=== PATIENT | female | born 1995 | race American Indian/Alaskan Native ===

== ENCOUNTER 2018-01-25 22:43 | Emergency (ER) | payer BC ==
[2018-01-26 04:01] LABS: Amorphous Crystals,Urine Few; Bilirubin,Urine NEG (Negative); Blood,Urine NEG (Negative); Color,Urine Yellow (Yellow); Hyaline Casts,Urine 3 /LPF; Mucus,Urine FEW /HPF; Protein,Urine <15 mg/dL mg/dL (Negative); Urobilinogen,Urine < 2.0 mg/dL (<2.0)
[2018-01-26] MEDS ORDERED: TYLENOL PO ONE (04:16)
--- NOTE | 2018-01-26 04:17 | Emergency Department Report ---
ED General Adult HPI - General Chief complaint: Upper Respiratory Infection Stated complaint: ABD PAIN; N/V; 17WKS GEST Time Seen by Provider: 01/26/18 04:13 Source: patient Mode of arrival: Ambulatory Limitations: No Limitations - History of Present Illness Initial comments: 22-year-old -[place] female comes in for evaluation of runny nose cough congestion for 3 days. She also reports she's been having lower abdominal pain denies any vaginal bleeding or discharge. Patient reports that she is 17 weeks gestation 1 para 0. Patient reports that she had last seen OB last month but is trying to find another OB provider. Patient is taking no medications for pain she denies any fever or chills reports lower abdominal pain as crampy. She also reports that she has vomited 3 times today. SHe complains of her seasonal allergies flare and sneezing, and runny nose,cough and nasal congestion. -: days(s) (3) Location: abdomen Quality: aching Consistency: constant Improves with: none Worsens with: none Associated Symptoms: nausea/vomiting Treatments Prior to Arrival: none - Related Data Previous Rx's Medication Instructions Recorded Last Taken Type Docosahexanoic Acid [ Dha] 200 mg PO QDAY #90 capsule 01/26/18 Unknown Rx Loratadine [Claritin] 10 mg PO DAILY #30 tablet 01/26/18 Unknown Rx Allergies Allergy/AdvReac Type Severity Reaction Status Date / Time No Known Allergies Allergy Verified 01/26/18 02:05 ED Review of Systems ROS: Stated complaint: ABD PAIN; N/V; 17WKS GEST Other details as noted in HPI Constitutional: denies: chills, fever ENT: other Respiratory: cough (runny nose, sneezing) Cardiovascular: denies: chest pain, palpitations Endocrine: no symptoms reported Gastrointestinal: vomiting Genitourinary: denies: urgency, dysuria, discharge Musculoskeletal: denies: back pain, joint swelling, arthralgia Skin: denies: rash, lesions Neurological: denies: headache, weakness, paresthesias Psychiatric: denies: anxiety, depression Hematological/Lymphatic: denies: easy bleeding, easy bruising ED Past Medical Hx - Past Medical History Previous Medical History?: No - Surgical History Past Surgical History?: No - Social History Smoking Status: Never Smoker Substance Use Type: None - Medications Home Medications: Home Medications Medication Instructions Recorded Confirmed Last Taken Type Docosahexanoic Acid [ Dha] 200 mg PO QDAY #90 capsule 01/26/18 Unknown Rx Loratadine [Claritin] 10 mg PO DAILY #30 tablet 01/26/18 Unknown Rx ED Physical Exam - General Limitations: No Limitations General appearance: alert, in no apparent distress - Head Head exam: Present: atraumatic, normocephalic - Eye Eye exam: Present: normal appearance - ENT ENT exam: Present: mucous membranes moist - Neck Neck exam: Present: normal inspection - Respiratory Respiratory exam: Present: normal lung sounds bilaterally. Absent: respiratory distress - Cardiovascular Cardiovascular Exam: Present: regular rate, normal rhythm. Absent: systolic murmur, diastolic murmur, rubs, gallop - GI/Abdominal GI/Abdominal exam: Present: soft, normal bowel sounds - Extremities Exam Extremities exam: Present: normal inspection - Back Exam Back exam: Present: normal inspection - Neurological Exam Neurological exam: Present: alert, oriented X3 - Psychiatric Psychiatric exam: Present: normal affect, normal mood - Skin Skin exam: Present: warm, dry, intact, normal color. Absent: rash ED Course Vital Signs 01/26/18 01/26/18 00:40 04:43 Temperature 98.0 F Pulse Rate 73 72 Respiratory 17 18 Rate Blood Pressure 102/59 Blood Pressure 105/61 [Right] O2 Sat by Pulse 100 100 Oximetry ED Medical Decision Making - Radiology Data Radiology results: report reviewed, image reviewed Ultrasound impression single viable IUP, 17 weeks 4 days. heart rate 1 49 bpm - Medical Decision Making Patient's been evaluated with this provider fast track. Urinalysis ultrasound type and cross Tylenol referral to [facility]. She did take [id number] Claritin 10mg daily. Critical care attestation.: If time is entered above; I have spent that time in minutes in the direct care of this critically ill patient, excluding procedure time. ED Disposition Clinical Impression: 17 weeks gestation of Abdominal pain Qualifiers: Abdominal location: lower abdomen, unspecified Qualified Code(s): R10.30 - Lower abdominal pain, unspecified Allergic rhinitis Qualifiers: Allergic rhinitis trigger: unspecified Allergic rhinitis seasonality: unspecified seasonality Qualified Code(s): J30.9 - Allergic rhinitis, unspecified Disposition: DC- TO HOME OR SELFCARE Is pt being admited?: No Does the pt Need Aspirin: No Condition: Stable Instructions: (ED), Allergic Rhinitis (ED) Additional Instructions: Takes her vitamins as prescribed and take her Claritin for your seasonal allergies. Follow up with an OB for continued care. Prescriptions: Docosahexanoic Acid [ Dha] 200 mg PO QDAY #90 capsule Loratadine [Claritin] 10 mg PO DAILY #30 tablet Referrals: DONALD VERDUZCO [Other] - 3-5 Days [facility] [Provider Group] - 3-5 Days [facility] [Provider Group] - 3-5 Days CHINMAY MCDANIEL MD [Staff Physician] - 3-5 Days Forms: Work/School Release Form(ED)
--- NOTE | 2018-01-26 04:28 | Ultrasound Report ---
FINAL REPORT EXAM: US OB > = 14 WEEKS FETUS HISTORY: abdominal cramping TECHNIQUE: Transabdominal imaging was obtained of the pelvis along with Doppler interrogation of the fetus. FINDINGS: There is a single viable IUP with an estimated gestational age of 17 weeks 4 days. The heart rate is 149 BPM. The cervix is closed. The cervix length is 3 cm. The position is breech. The amniotic fluid volume appears normal. The placenta is posterior in position and is grade 0. The stomach, kidneys, bladder, diaphragm, heart, and three-vessel cord all appear normal. The spine, four-chamber reveal heart, and cord insertion are not adequately seen for evaluation. Estimated weight is 198 grams. IMPRESSION: Single viable IUP, 17 weeks 4 days. heart rate is 149 BPM.
[2018-01-26 04:44] VITALS: BP 105/61
== END 2018-01-26 04:48 | disposition home or self-care (01) ==
LOC: ED 22:43
DX: O99.512 Diseases of the respiratory system complicating pregnancy, second trimester (principal); J30.9 Allergic rhinitis, unspecified; R10.30 Lower abdominal pain, unspecified; R11.2 Nausea with vomiting, unspecified; Z3A.17 17 weeks gestation of pregnancy
CPT/HCPCS: 36415; 76805; 81001; 84702; 86850; 86900; 86901; 87086

== ENCOUNTER 2018-12-14 16:41 | Emergency (ER) | payer BC, OTHER ==
[2018-12-14 16:54] VITALS: BP 127/79
--- NOTE | 2018-12-14 16:55 | Emergency Department Report ---
Blank Doc - Documentation Documentation: 23 y o female presents with dysuria x 2 days denies vag bleed,d/c/pelv pain UA/UPT [facility] evaluate
[2018-12-14 18:30] LABS: Bacteria,Urine 2+ /HPF (Negative); Bilirubin,Urine NEG (Negative); Blood,Urine NEG (Negative); Color,Urine Amber (Yellow); Mucus,Urine FEW /HPF
--- NOTE | 2018-12-14 18:31 | Emergency Department Report ---
ED Female HPI - General Chief complaint: Urogenital-Female Stated complaint: UTI Time Seen by Provider: 12/14/18 16:52 Source: patient Mode of arrival: Ambulatory Limitations: No Limitations - History of Present Illness Initial comments: Patient 23-year-old female who presents with dysuria frequency urgency 2 days patient denies discharge no vaginal bleeding no back pain assessment pain no nausea vomiting patient states that this is UTI symptoms exacerbated of bloating symptoms are relieved by nothing there is no fever chills MD Complaint: vaginal discharge, dysuria Onset/Timin -: days(s) Location: suprapubic Radiation: non-radiating Severity: moderate Severity scale (0 -10): 4 Quality: cramping Consistency: intermittent Improves with: none Worsens with: none Are you Now?: No Last Menstrual Period: 11/30/18 EDC: 09/06/19 Associated Symptoms: vaginal discharge, dysuria - Related Data Sexually active: Yes : 0 Para: 0 A: 0 Previous Rx's Medication Instructions Recorded Last Taken Type Docosahexanoic Acid [ Dha] 200 mg PO QDAY #90 capsule 01/26/18 Unknown Rx Loratadine [Claritin] 10 mg PO DAILY #30 tablet 01/26/18 Unknown Rx Ibuprofen 800 mg PO TID PRN #30 tablet 12/14/18 Unknown Rx Nitrofurantoin [place]/M-Cryst 100 mg PO BID 7 Days #14 capsule 12/14/18 Unknown Rx [Macrobid CAP] Allergies Allergy/AdvReac Type Severity Reaction Status Date / Time No Known Allergies Allergy Verified 12/14/18 16:51 ED Review of Systems ROS: Stated complaint: UTI Other details as noted in HPI Constitutional: denies: chills, fever Eyes: denies: eye pain, eye discharge, vision change ENT: denies: ear pain, throat pain Respiratory: no symptoms reported Cardiovascular: denies: chest pain, palpitations Endocrine: no symptoms reported Gastrointestinal: denies: abdominal pain, nausea, diarrhea Genitourinary: denies: urgency, dysuria, discharge Musculoskeletal: joint swelling (is warm). denies: back pain, arthralgia Skin: denies: rash, lesions Neurological: denies: headache, weakness, paresthesias Psychiatric: denies: anxiety, depression Hematological/Lymphatic: denies: easy bleeding, easy bruising ED Past Medical Hx - Past Medical History Previous Medical History?: No - Surgical History Past Surgical History?: No - Social History Smoking Status: Current Every Day Smoker Substance Use Type: Alcohol, Marijuana - Medications Home Medications: Home Medications Medication Instructions Recorded Confirmed Last Taken Type Docosahexanoic Acid [ Dha] 200 mg PO QDAY #90 capsule 01/26/18 Unknown Rx Loratadine [Claritin] 10 mg PO DAILY #30 tablet 01/26/18 Unknown Rx Ibuprofen 800 mg PO TID PRN #30 tablet 12/14/18 Unknown Rx Nitrofurantoin [place]/M-Cryst 100 mg PO BID 7 Days #14 capsule 12/14/18 Unknown Rx [Macrobid CAP] ED Physical Exam - General Limitations: No Limitations General appearance: alert, in no apparent distress - Head Head exam: Present: atraumatic, normocephalic - Eye Eye exam: Present: normal appearance, PERRL, EOMI Pupils: Present: normal accommodation - ENT ENT exam: Present: normal exam, normal orophraynx (tolerated), mucous membranes moist, TM's normal bilaterally, normal external ear exam - Neck Neck exam: Present: normal inspection, full ROM. Absent: tenderness, lymphadenopathy, thyromegaly - Respiratory Respiratory exam: Absent: wheezes, stridor, chest wall tenderness - Cardiovascular Cardiovascular Exam: Present: regular rate, normal rhythm, normal heart sounds. Absent: systolic murmur, diastolic murmur, rubs, gallop - GI/Abdominal GI/Abdominal exam: Present: soft, normal bowel sounds. Absent: distended, tenderness, guarding, rebound, rigid, mass, bruit, hernia - Rectal Rectal exam: Present: deferred - Extremities Exam Extremities exam: Present: normal inspection, full ROM, normal capillary refill. Absent: tenderness, pedal edema, joint swelling, calf tenderness - Back Exam Back exam: Present: normal inspection, full ROM. Absent: tenderness, CVA tenderness (R), CVA tenderness (L), muscle spasm, paraspinal tenderness, vertebral tenderness, rash noted - Neurological Exam Neurological exam: Present: alert, oriented X3, CN II-XII intact, normal gait, reflexes normal - Psychiatric Psychiatric exam: Present: normal affect, normal mood - Skin Skin exam: Present: warm, dry, intact, normal color. Absent: rash ED Course Vital Signs 12/14/18 16:52 Temperature 97.7 F Pulse Rate 79 Respiratory 16 Rate Blood Pressure 127/79 O2 Sat by Pulse 100 Oximetry ED Medical Decision Making - Lab Data Labs 12/14/18 17:14 Urine Color Cristal Urine Turbidity Clear Urine pH 5.0 Ur Specific [place] 1.016 Urine Protein 30 mg/dl Urine Glucose (UA) Neg Urine Ketones Neg Urine Blood Neg Urine Nitrite Pos Urine Bilirubin Neg Urine Urobilinogen 4.0 Ur Leukocyte Esterase Neg Urine WBC (Auto) 49.0 H Urine RBC (Auto) 6.0 U Epithel Cells (Auto) 8.0 Urine Bacteria (Auto) 2+ Urine Mucus Few Urine HCG, Qual Negative - Medical Decision Making this is a UTI plan: macrobid iburprofen follow up with pcp in 2-3 days return to ed if symptoms worsen, pt verbalized agreement and understanding of discharge plan. Critical care attestation.: If time is entered above; I have spent that time in minutes in the direct care of this critically ill patient, excluding procedure time. ED Disposition Clinical Impression: UTI (urinary tract infection) Qualifiers: Urinary tract infection type: acute cystitis Hematuria presence: without hematuria Qualified Code(s): N30.00 - Acute cystitis without hematuria Disposition: DC-01 TO HOME OR SELFCARE Is pt being admited?: No Does the pt Need Aspirin: No Condition: Stable Instructions: Urinary Tract Infection in Women (ED) Prescriptions: Ibuprofen 800 mg PO TID PRN #30 tablet PRN Reason: pain Nitrofurantoin [place]/M-Cryst [Macrobid CAP] 100 mg PO BID 7 Days #14 capsule Referrals: BOB EDWARD MD [Primary Care Provider] - 3-5 Days Forms: Work/School Release Form(ED) Time of Disposition: 19:32
[2018-12-14 18:59] LABS: HCG Qualitative,Urine Negative (Negative)
== END 2018-12-14 19:40 | disposition home or self-care (01) ==
LOC: ED 16:41
DX: N39.0 Urinary tract infection, site not specified (principal); F17.200 Nicotine dependence, unspecified, uncomplicated
CPT/HCPCS: 81001; 81025; 99283

== ENCOUNTER 2019-05-02 14:55 | Emergency (ER) | payer BC, OTHER ==
--- NOTE | 2019-05-02 15:11 | Emergency Department Report ---
Blank Doc - Documentation Documentation: This is a 23-year-old female that presents with vaginal discharge and itching. This initial assessment/diagnostic orders/clinical plan/treatment(s) is/are subject to change based on patient's health status, clinical progression and re- assessment by fellow clinical providers in the ED. Further treatment and workup at subsequent clinical providers discretion. Patient/guardians urged not to elope from the ED as their condition may be serious if not clinically assessed and managed. Initial orders include: 1- Patient sent to [facility] for further evaluation and treatment 2- UA 3- wet prep/GC
[2019-05-02 15:13] VITALS: BP 112/72
--- NOTE | 2019-05-02 15:38 | Emergency Department Report ---
ED Female HPI - General Chief complaint: Urogenital-Female Stated complaint: YEAST INFECTION Time Seen by Provider: 05/02/19 15:10 Source: patient Mode of arrival: Ambulatory Limitations: No Limitations - History of Present Illness Initial comments: CC: "I have a really bad yeast infection." Angela presents with recurrent yeast infection which occurs every few months. She desires oral fluconazole. She states that the [id number] cream normally works. However she has not desire to perform application of topical treatment. She denies fever. She denies abdominal pain. She has white discharge. Vaginal itching is her main concern. MD Complaint: vaginal discharge, other (vaginal itching) -: Gradual, days(s) (2) Location: labia Severity: mild Quality: other (itching and irritation) Consistency: constant Improves with: medication Worsens with: bathing Are you Now?: No Associated Symptoms: vaginal discharge - Related Data Previous Rx's Medication Instructions Recorded Last Taken Type Docosahexanoic Acid [ Dha] 200 mg PO QDAY #90 capsule 01/26/18 Unknown Rx Loratadine [Claritin] 10 mg PO DAILY #30 tablet 01/26/18 Unknown Rx Ibuprofen [Ibuprofen 800] 800 mg PO TID PRN #30 tablet 12/14/18 Unknown Rx Nitrofurantoin [place]/M-Cryst 100 mg PO BID 7 Days #14 capsule 12/14/18 Unknown Rx [Macrobid CAP] Fluconazole [Diflucan TAB] 150 mg PO ONCE #1 tablet 05/02/19 Unknown Rx Miconazole/Cleanser 17 On Wipe 1 each VG ONCE #1 kit 05/02/19 Unknown Rx [Monistat 7 Combination Pack] Allergies Allergy/AdvReac Type Severity Reaction Status Date / Time No Known Allergies Allergy Verified 12/14/18 16:51 ED Review of Systems ROS: Stated complaint: YEAST INFECTION Other details as noted in HPI Constitutional: denies: fever, malaise Gastrointestinal: denies: abdominal pain, nausea, vomiting Genitourinary: discharge. denies: urgency, dysuria, hematuria, abnormal menses Skin: denies: rash, lesions ED Past Medical Hx - Past Medical History Previous Medical History?: No - Surgical History Past Surgical History?: No - Social History Smoking Status: Never Smoker Substance Use Type: Marijuana - Medications Home Medications: Home Medications Medication Instructions Recorded Confirmed Last Taken Type Docosahexanoic Acid [ Dha] 200 mg PO QDAY #90 capsule 01/26/18 Unknown Rx Loratadine [Claritin] 10 mg PO DAILY #30 tablet 01/26/18 Unknown Rx Ibuprofen [Ibuprofen 800] 800 mg PO TID PRN #30 tablet 12/14/18 Unknown Rx Nitrofurantoin [place]/M-Cryst 100 mg PO BID 7 Days #14 capsule 12/14/18 Unknown Rx [Macrobid CAP] Fluconazole [Diflucan TAB] 150 mg PO ONCE #1 tablet 05/02/19 Unknown Rx Miconazole/Cleanser 17 On Wipe 1 each VG ONCE #1 kit 05/02/19 Unknown Rx [Monistat 7 Combination Pack] ED Physical Exam - General Limitations: No Limitations General appearance: alert, in no apparent distress - Head Head exam: Present: atraumatic, normocephalic - Eye Eye exam: Present: normal appearance - ENT ENT exam: Present: mucous membranes moist - Neck Neck exam: Present: normal inspection - Cardiovascular Cardiovascular Exam: Absent: systolic murmur, diastolic murmur, rubs, gallop - GI/Abdominal GI/Abdominal exam: Present: soft, normal bowel sounds - Extremities Exam Extremities exam: Present: normal inspection - Neurological Exam Neurological exam: Present: alert, oriented X3 - Psychiatric Psychiatric exam: Present: normal affect, normal mood - Skin Skin exam: Present: warm, dry, intact, normal color. Absent: rash ED Course Vital Signs 05/02/19 15:10 Temperature 98.5 F Pulse Rate 82 Respiratory 16 Rate Blood Pressure 112/72 O2 Sat by Pulse 99 Oximetry ED Medical Decision Making - Medical Decision Making Vaginitis: Will treat for candidal vaginitis with oral fluconazole and Monistat. Referred to outside clinic for further evaluation. Critical care attestation.: If time is entered above; I have spent that time in minutes in the direct care of this critically ill patient, excluding procedure time. ED Disposition Clinical Impression: Vaginitis due to Fela Disposition: - TO HOME OR SELFCARE Is pt being admited?: No Does the pt Need Aspirin: No Condition: Stable Instructions: Vulvovaginal Candidiasis (ED) Prescriptions: Fluconazole [Diflucan TAB] 150 mg PO ONCE #1 tablet Miconazole/Cleanser 17 On Wipe [Monistat 7 Combination Pack] 1 each VG ONCE #1 kit Referrals: [facility] [Outside] - 3-5 Days Forms: Work/School Release Form(ED)
== END 2019-05-02 16:00 | disposition home or self-care (01) ==
LOC: ED 14:55
DX: B37.3 Candidiasis of vulva and vagina (principal); F12.10 Cannabis abuse, uncomplicated; Z79.899 Other long term (current) drug therapy
CPT/HCPCS: 99282

== ENCOUNTER 2019-05-03 07:41 | Emergency (ER) | payer BC, OTHER ==
[2019-05-03 07:48] VITALS: BP 170/71
--- NOTE | 2019-05-03 08:30 | Emergency Department Report ---
ED Rash HPI - HPI Chief Complaint: Skin Rash Stated Complaint: WELTS/ITCHY ON ARMS/FACE/CHEST/HANDS Time Seen by Provider: 05/03/19 08:07 Duration: 2 Days Location: Other (diffuse) Suspected Cause: Other (patient states that she is sleeping on a used mattress at this time) Rash Symptoms: Yes Itching, No Facial Swelling, No Tongue/Oral Swelling, No Breathing Difficulties, No Choking Sensation, No Wheezing/Dyspnea, No Peeling, No Blistering, No Fever ED Review of Systems ROS: Stated complaint: WELTS/ITCHY ON ARMS/FACE/CHEST/HANDS Other details as noted in HPI Comment: All other systems reviewed and negative ED Past Medical Hx - Past Medical History Previous Medical History?: No - Surgical History Past Surgical History?: No - Social History Smoking Status: Never Smoker Substance Use Type: Marijuana - Medications Home Medications: Home Medications Medication Instructions Recorded Confirmed Last Taken Type Docosahexanoic Acid [ Dha] 200 mg PO QDAY #90 capsule 01/26/18 Unknown Rx Loratadine [Claritin] 10 mg PO DAILY #30 tablet 01/26/18 Unknown Rx Ibuprofen [Ibuprofen 800] 800 mg PO TID PRN #30 tablet 12/14/18 Unknown Rx Nitrofurantoin [place]/M-Cryst 100 mg PO BID 7 Days #14 capsule 12/14/18 Unknown Rx [Macrobid CAP] Fluconazole [Diflucan TAB] 150 mg PO ONCE #1 tablet 05/02/19 Unknown Rx Miconazole/Cleanser 17 On Wipe 1 each VG ONCE #1 kit 05/02/19 Unknown Rx [Monistat 7 Combination Pack] Permethrin 5% [Acticin 5% CREAM] 1 applicatio TP ONCE #1 tube 05/03/19 Unknown Rx diphenhydrAMINE [Benadryl CAP] 25 mg PO Q6HR PRN #10 capsule 05/03/19 Unknown Rx predniSONE [Deltasone] 20 mg PO QDAY #5 tab 05/03/19 Unknown Rx Rash Exam - Exam General: Vital signs noted. No distress. Alert and acting appropriately. HEENT: No Periorbital Edema, No Conjuctival Injection, No Chemosis, No Perioral Edema, No Tongue Edema, No Uvular Edema, No Compromised Airway, No Drooling Lungs: Yes Good Air Exchange (Normal Breath Sounds), No Wheezes, No Ronchi, No Stridor, No Cough, No Labored Respirations, No Retractions, No Use of Accessory Muscles, No Other Abnormal Lung Sounds Heart: Yes Regular, No Murmur Skin: Yes Urticarial Rash (patient with multiple papules diffusely in her body especially on her face hands and upper extremity. Some of these have urticarial-type base and are grouped togeather), Yes Maculopapular Rash Other: Positive: Abdomen Normal, Neurologic Normal, Musculoskeletal Normal ED Course Vital Signs 05/03/19 07:45 Temperature 98.1 F Pulse Rate 73 Respiratory 18 Rate Blood Pressure 170/71 O2 Sat by Pulse 98 Oximetry ED Medical Decision Making - Medical Decision Making The patient states that she has not seen any actual bedbugs on the mattress therefore patient likely has scabies. Patient treated appropriately and discharged home. Critical care attestation.: If time is entered above; I have spent that time in minutes in the direct care of this critically ill patient, excluding procedure time. ED Disposition Clinical Impression: Scabies Disposition: DC-01 TO HOME OR SELFCARE Is pt being admited?: No Does the pt Need Aspirin: No Condition: Stable Instructions: Scabies (ED) Referrals: [facility] [Other] - 3-5 Days Time of Disposition: 08:30
== END 2019-05-03 08:43 | disposition home or self-care (01) ==
LOC: ED 07:41
DX: B86 Scabies (principal); F12.10 Cannabis abuse, uncomplicated; Z79.899 Other long term (current) drug therapy
CPT/HCPCS: 99282

== ENCOUNTER 2019-06-10 19:44 | Emergency (ER) | payer BC, OTHER ==
--- NOTE | 2019-06-10 20:50 | Emergency Department Report ---
Blank Doc - Documentation Documentation: 23-year-old female that presents with vaginal discharge. This initial assessment/diagnostic orders/clinical plan/treatment(s) is/are subject to change based on patient's health status, clinical progression and re- assessment by fellow clinical providers in the ED. Further treatment and workup at subsequent clinical providers discretion. Patient/guardians urged not to elope from the ED as their condition may be serious if not clinically assessed and managed. Initial orders include: 1- Patient sent to [facility] for further evaluation and treatment 2- UA 3- pelvic exam to be done
[2019-06-10 20:53] VITALS: BP 99/61
[2019-06-10 22:16] LABS: HCG Qualitative,Urine Negative (Negative)
[2019-06-10 22:21] LABS: Bilirubin,Urine NEG (Negative); Blood,Urine NEG (Negative); Color,Urine Yellow (Yellow); Hyaline Casts,Urine 2 /LPF; Mucus,Urine FEW /HPF; Protein,Urine <15 mg/dL mg/dL (Negative)
--- NOTE | 2019-06-11 02:32 | Emergency Department Report ---
ED Female HPI - General Chief complaint: Urogenital-Female Stated complaint: VAGINAL DISCHARGE/FACIAL RASH Time Seen by Provider: 06/10/19 20:49 Source: patient Mode of arrival: Ambulatory Limitations: No Limitations - History of Present Illness Initial comments: Patient is a 23-year-old female presents to emergency room with complaints of vaginal discharge that began one week ago. She states it is thick and white. she has associated vaginal itching and irritation. she denies any abdominal pain, fever, nausea, vomiting, diarrhea, dysuria. States she is sexually active. States she uses protection and denies any new partners. She states she last saw her PLASTIC JOINT MAKER approximately 8 months ago. She denies any past medical history or allergies to medications. Patient also presents to the emergency room with complaints of a rash to the face that began this morning. She denies any facial swelling, difficulty breathing, sensation of throat closing. She denies any new detergents, soaps, foods, anything new. She states she has a past medical history of eczema and has used hydrocortisone cream in the past but does not have anymore. - Related Data Previous Rx's Medication Instructions Recorded Last Taken Type Docosahexanoic Acid [ Dha] 200 mg PO QDAY #90 capsule 01/26/18 Unknown Rx Loratadine [Claritin] 10 mg PO DAILY #30 tablet 01/26/18 Unknown Rx Ibuprofen [Ibuprofen 800] 800 mg PO TID PRN #30 tablet 12/14/18 Unknown Rx Nitrofurantoin [place]/M-Cryst 100 mg PO BID 7 Days #14 capsule 12/14/18 Unknown Rx [Macrobid CAP] Fluconazole [Diflucan TAB] 150 mg PO ONCE #1 tablet 05/02/19 Unknown Rx Miconazole/Cleanser 17 On Wipe 1 each VG ONCE #1 kit 05/02/19 Unknown Rx [Monistat 7 Combination Pack] Permethrin 5% [Acticin 5% CREAM] 1 applicatio TP ONCE #1 tube 05/03/19 Unknown Rx diphenhydrAMINE [Benadryl CAP] 25 mg PO Q6HR PRN #10 capsule 05/03/19 Unknown Rx predniSONE [Deltasone] 20 mg PO QDAY #5 tab 05/03/19 Unknown Rx Hydrocortisone 0.5% (Nf) 1 applicatio TP BID 7 Days #1 tube 06/11/19 Unknown Rx [Hydrocortisone 0.5% OINT] metroNIDAZOLE [Flagyl] 500 mg PO BID 7 Days #14 tablet 06/11/19 Unknown Rx Allergies Allergy/AdvReac Type Severity Reaction Status Date / Time peanut oil Allergy Rash Verified 06/10/19 20:22 ED Review of Systems ROS: Stated complaint: VAGINAL DISCHARGE/FACIAL RASH Other details as noted in HPI Comment: All other systems reviewed and negative ED Past Medical Hx - Past Medical History Previous Medical History?: No - Surgical History Past Surgical History?: No - Social History Smoking Status: Never Smoker Substance Use Type: Alcohol, Marijuana - Medications Home Medications: Home Medications Medication Instructions Recorded Confirmed Last Taken Type Docosahexanoic Acid [ Dha] 200 mg PO QDAY #90 capsule 01/26/18 Unknown Rx Loratadine [Claritin] 10 mg PO DAILY #30 tablet 01/26/18 Unknown Rx Ibuprofen [Ibuprofen 800] 800 mg PO TID PRN #30 tablet 12/14/18 Unknown Rx Nitrofurantoin [place]/M-Cryst 100 mg PO BID 7 Days #14 capsule 12/14/18 Unknown Rx [Macrobid CAP] Fluconazole [Diflucan TAB] 150 mg PO ONCE #1 tablet 05/02/19 Unknown Rx Miconazole/Cleanser 17 On Wipe 1 each VG ONCE #1 kit 05/02/19 Unknown Rx [Monistat 7 Combination Pack] Permethrin 5% [Acticin 5% CREAM] 1 applicatio TP ONCE #1 tube 05/03/19 Unknown Rx diphenhydrAMINE [Benadryl CAP] 25 mg PO Q6HR PRN #10 capsule 05/03/19 Unknown Rx predniSONE [Deltasone] 20 mg PO QDAY #5 tab 05/03/19 Unknown Rx Hydrocortisone 0.5% (Nf) 1 applicatio TP BID 7 Days #1 tube 06/11/19 Unknown Rx [Hydrocortisone 0.5% OINT] metroNIDAZOLE [Flagyl] 500 mg PO BID 7 Days #14 tablet 06/11/19 Unknown Rx ED Physical Exam - General Limitations: No Limitations General appearance: alert, in no apparent distress - Head Head exam: Present: atraumatic, normocephalic - Eye Eye exam: Present: normal appearance - ENT ENT exam: Present: mucous membranes moist - Respiratory Respiratory exam: Present: normal lung sounds bilaterally. Absent: respiratory distress, wheezes, rales, rhonchi, stridor, chest wall tenderness, accessory muscle use, decreased breath sounds, prolonged expiratory - Cardiovascular Cardiovascular Exam: Present: regular rate, normal rhythm, normal heart sounds. Absent: systolic murmur, diastolic murmur, rubs, gallop - GI/Abdominal GI/Abdominal exam: Present: soft, normal bowel sounds. Absent: distended, tenderness, guarding, rebound, rigid - External exam: Present: normal external exam. Absent: erythema, swelling, lesions, lacerations, ecchymosis, bleeding Speculum exam: Present: vaginal discharge (white), cervical discharge (white), other (desktop support specialist: FREEDOM Hernandez). Absent: erythema, vaginal bleeding, foreign body, tissue, laceration Bi-manual exam: Present: normal bi-manual exam. Absent: cervical motion tendernes, adnexal tenderness, adnexal mass - Back Exam Back exam: Absent: CVA tenderness (R), CVA tenderness (L) - Neurological Exam Neurological exam: Present: alert, oriented X3 - Psychiatric Psychiatric exam: Present: normal affect, normal mood - Skin Skin exam: Present: warm, dry, other (very small skin colored papules present to the face) ED Course Vital Signs 06/10/19 20:50 Temperature 98.4 F Pulse Rate 55 L Respiratory 16 Rate Blood Pressure 99/61 O2 Sat by Pulse 100 Oximetry ED Medical Decision Making - Medical Decision Making Patient is a 23-year-old female presents to emergency room with complaints of vaginal discharge that began one week ago. She states it is thick and white. she has associated vaginal itching and irritation. she denies any abdominal pain, fever, nausea, vomiting, diarrhea, dysuria. States she is sexually acti ve. States she uses protection and denies any new partners. She states she last saw her [employer]ER approximately 8 months ago. She denies any past medical history or allergies to medications. Patient also presents to the emergency room with complaints of a rash to the face that began this morning. She denies any facial swelling, difficulty breathing, sensation of throat closing. She denies any new detergents, soaps, foods, anything new. She states she has a past medical history of eczema and has used hydrocortisone cream in the past but does not have anymore. vss. no abd tenderness on exam, white discharge present on exam, desktop support specialist: FREEDOM hernandez. no CMT or adnexal tenderness, unlikely to be PID. wet prep shows evidence of BV and show polymorphonuclear cells. pt swabbed for G/C. UA without evidence of UTI. urine preg negative. discussed with pt due to polymorphonuclear cells would tx for G/C. pt states she will take the tx for chlamydia but declines tx for gonorrhea and states she will wait til her test results come back and will see her vocational education professional. pt given prescription for flagyl. advised pt to Please take medication as prescribed. do not drink alcohol while taking medication. Please check back with medical records in 1 week for results of your test. please have partner tested and treated as well. Abstain from sexual intercourse for 10 days. if Concern for any other STDs please be seen by primary care doctor or health department. return to the emergency room for any new or worsening symptoms. - Differential Diagnosis UTI, STD, vaginitis Critical care attestation.: If time is entered above; I have spent that time in minutes in the direct care of this critically ill patient, excluding procedure time. ED Disposition Clinical Impression: Bacterial vaginosis, Vaginal discharge, Facial rash Disposition: - TO HOME OR SELFCARE Is pt being admited?: No Does the pt Need Aspirin: No Condition: Stable Instructions: Bacterial Vaginosis (ED), Sexually Transmitted Diseases (ED), Safe Sex (ED), Acute Rash (ED) Additional Instructions: Please take medication as prescribed. do not drink alcohol while taking medication. Please check back with medical records in 1 week for results of your test. please have partner tested and treated as well. Abstain from sexual intercourse for 10 days. if Concern for any other STDs please be seen by primary care doctor or health department. return to the emergency room for any new or worsening symptoms. Prescriptions: metroNIDAZOLE [Flagyl] 500 mg PO BID 7 Days #14 tablet Hydrocortisone 0.5% (Nf) [Hydrocortisone 0.5% OINT] 1 applicatio TP BID 7 Days #1 tube Referrals: RODRIGUE JUSTIN MD [Primary Care Provider] - 2-3 Days Forms: STI Treatment and Prevention, Work/School Release Form(ED) Time of Disposition: 03:08 Print Language: MALAY
[2019-06-11] MEDS ORDERED: ZITHROMAX PO ONE (03:11)
[2019-06-11] MEDS ORDERED: ROCEPHIN IM ONE (03:11)
[2019-06-11] MEDS ORDERED: XYLOCAINE 1% MPF 5 mL INFILTRATI ONE (03:11)
== END 2019-06-11 03:47 | disposition home or self-care (01) ==
LOC: ED 19:44
DX: N76.0 Acute vaginitis (principal); B96.89 Other specified bacterial agents as the cause of diseases classified elsewhere; F12.10 Cannabis abuse, uncomplicated; R21 Rash and other nonspecific skin eruption; Z91.010 Allergy to peanuts; Z79.899 Other long term (current) drug therapy
CPT/HCPCS: 81001; 81025; 87210; 87591; 99284; J0696